=== PATIENT | male | born 1975 | race Caucasian/White ===

== ENCOUNTER 2021-12-03 14:09 | Emergency (ER) | payer OTHER ==
[2021-12-03] MEDS ORDERED: NAPROXEN500 MG PO (18:25)
[2021-12-03] MEDS ORDERED: NORFLEX 100 MG100 MG PO (18:25)
== END 2021-12-03 18:37 | disposition home or self-care (01) ==
LOC: ER1 14:09
DX: S22.32XA Fracture of one rib, left side, initial encounter for closed fracture (principal); R10.812 Left upper quadrant abdominal tenderness; M54.50 Low back pain, unspecified; I10 Essential (primary) hypertension; E11.9 Type 2 diabetes mellitus without complications; Z79.4 Long term (current) use of insulin; Z79.82 Long term (current) use of aspirin; Y92.89 Other specified places as the place of occurrence of the external cause; Y99.0 Civilian activity done for income or pay; W19.XXXA Unspecified fall, initial encounter
CPT/HCPCS: 71111; 96372; 99283; J1885